=== PATIENT | male | born 1935 | race Caucasian/White ===

== ENCOUNTER 2021-08-31 18:36 | Inpatient (IN) ==
[2021-08-31 22:22] LABS: Basophils # 0.1 K/mcL (0.0-0.2); Basophils % 0.8 %; Eosinophils # 0.5 K/mcL (0.0-0.6); Eosinophils % 6.4 %; Hematocrit 37.5 % (37.5-50.1); Hemoglobin 11.8 g/dL (12.9-16.9); Immature Granulocytes % 0.4 % (0-4); Lymphocytes # 1.9 K/mcL (0.6-4.6); Lymphocytes % 22.7 %; Mean Corpuscular HGB Conc 31.5 g/dL (31.6-35.5); Mean Corpuscular Hemoglobin 28.6 pg (28.0-33.3); Mean Platelet Volume 10.3 fL (9.4-12.4); Monocytes # 0.8 K/mcL (0.0-1.3); Monocytes % 9.8 %; Platelet Count 281 K/mcL (140-400); Red Blood Count 4.12 M/mcL (4.19-5.50); Red Cell Distribution Width 12.7 % (11.5-14.5); Segmented Neutrophils % 59.9 %; White Blood Count 8.4 K/mcL (4.3-11.1)
[2021-08-31 22:37] LABS: BUN/Creatinine Ratio 31 (6-26); Blood Urea Nitrogen 33 mg/dL (8-23); Calcium 9.4 mg/dL (8.6-10.3); Carbon Dioxide 25 mEq/L (23-29); Chloride 107 mEq/L (98-107); Glucose 131 mg/dL (70-105); Osmolality,Calculated 299 (280-300); Sodium 140 mEq/L (136-145); eGFR For African Americans > 60 (> 60); eGFR For Non-African Americans > 60 (> 60)
[2021-08-31 22:48] LABS: Bilirubin,Urine Large (Negative); Blood,Urine Large (Negative); Clarity,Urine Turbid (Clear); Color,Urine Red (Yellow); Glucose,Urine (UA) Normal (Normal); Ketones,Urine 15 mg/dL (Negative); Leukocyte Esterase,Urine Large (Negative); Nitrite,Urine Positive (Negative); Protein,Urine >=300 mg/dL (Neg-Trace)
[2021-09-01] MEDS ORDERED: Isovue-370 500 ML BOTTLE IVP ONE (00:05)
[2021-09-01 00:50] LABS: INR 1.1; Prothrombin Time 12.4 Seconds (9.4-12.1)
[2021-09-01 00:54] LABS: Activated Partial Thrombo Time 30.4 Seconds (26.0-36.0)
[2021-09-01] MEDS ORDERED: Lidocaine Jelly 11 ml Syringe TP ONE (01:09)
[2021-09-01] MEDS ORDERED: cefTRIAXone 1,000 MG in 0.9 % Sodium Chloride Mini Bag 100 ML IVPB ONE (01:51)
[2021-09-01] MEDS ORDERED: Melatonin 3 MG TABLET PO PRN ×2 (02:11→18:07)
[2021-09-01] MEDS ORDERED: Naloxone 0.4 MG/ML INJ IVP PRN ×2 (02:11→18:07)
[2021-09-01] MEDS ORDERED: Ondansetron 4 MG/2 ML VIAL IVP PRN ×3 (02:11→18:07)
[2021-09-01] MEDS ORDERED: Acetaminophen 325 MG TABLET PO PRN ×2 (02:11→18:07)
[2021-09-01] MEDS ORDERED: Dextrose Gel 15 GM/37.5 ML TUBE PO PRN ×4 (02:14→18:07)
[2021-09-01] MEDS ORDERED: D5% in Water 1,000 ML IVC PRN ×2 (02:14→18:07)
[2021-09-01] MEDS ORDERED: *HR* Dextrose 50 % in Water (Syg) 50 ML SYRINGE IVP PRN ×2 (02:14→18:07)
[2021-09-01] MEDS: Insulin LISPRO 300 UNITS/3 ML VIAL SUBQ SCH ×3 (05:49→17:25)
[2021-09-01 06:03] LABS: Basophils # 0.1 K/mcL (0.0-0.2); Basophils % 0.8 %; Eosinophils # 0.6 K/mcL (0.0-0.6); Eosinophils % 7.8 %; Hematocrit 34.9 % (37.5-50.1); Hemoglobin 10.7 g/dL (12.9-16.9); Immature Granulocytes % 0.3 % (0-4); Lymphocytes # 1.5 K/mcL (0.6-4.6); Lymphocytes % 19.1 %; Mean Corpuscular HGB Conc 30.7 g/dL (31.6-35.5); Mean Corpuscular Hemoglobin 28.3 pg (28.0-33.3); Mean Corpuscular Volume 92.3 fL (83.0-100.0); Mean Platelet Volume 10.7 fL (9.4-12.4); Monocytes # 0.8 K/mcL (0.0-1.3); Monocytes % 9.4 %; Platelet Count 238 K/mcL (140-400); Red Blood Count 3.78 M/mcL (4.19-5.50); Red Cell Distribution Width 12.7 % (11.5-14.5); Segmented Neutrophils % 62.6 %
[2021-09-01 06:29] LABS: BUN/Creatinine Ratio 34 (6-26); Blood Urea Nitrogen 33 mg/dL (8-23); Calcium 8.9 mg/dL (8.6-10.3); Carbon Dioxide 22 mEq/L (23-29); Chloride 109 mEq/L (98-107); Glucose 129 mg/dL (70-105); Osmolality,Calculated 297 (280-300); Potassium 3.8 mEq/L (3.5-5.1); Sodium 139 mEq/L (136-145); eGFR For African Americans > 60 (> 60); eGFR For Non-African Americans > 60 (> 60)
[2021-09-01] MEDS ORDERED: DilTIAZem CD (24hr) 120 MG CAP.ER.24H PO SCH (09:00)
[2021-09-01] MEDS ORDERED: *HR* FentaNYL (PF) 100 MCG/2 ML VIAL IVP PRN (16:15)
[2021-09-01] MEDS ORDERED: Lidocaine -MPF 2% 5 ML VIAL ONE (16:22)
[2021-09-01] MEDS ORDERED: *HR* Propofol 200 MG/20 ML VIAL IVP ONE (16:22)
[2021-09-01] MEDS ORDERED: *HR* FentaNYL (PF) 100 MCG/2 ML VIAL ONE (16:22)
[2021-09-01] MEDS ORDERED: Ondansetron 4 MG/2 ML VIAL ONE ×2 (16:34→16:40)
[2021-09-01] MEDS: cefTRIAXone 1,000 MG in Water for inj. (sterile) 10 ML IVP SCH (20:38)
[2021-09-01] MEDS ORDERED: cefTRIAXone 1,000 MG in Water for inj. (sterile) 10 ML IVP SCH (21:00)
[2021-09-02] MEDS: Insulin LISPRO 300 UNITS/3 ML VIAL SUBQ SCH ×4 (00:58→20:19)
[2021-09-02] MEDS: DilTIAZem CD (24hr) 120 MG CAP.ER.24H PO SCH (09:18)
[2021-09-02] MEDS: cefTRIAXone 1,000 MG in Water for inj. (sterile) 10 ML IVP SCH (09:18)
[2021-09-02 09:58] LABS: Hematocrit 35.4 % (37.5-50.1)
[2021-09-02 10:11] LABS: Phosphorous 2.4 mg/dL (2.7-4.5)
[2021-09-02 10:13] LABS: BUN/Creatinine Ratio 31 (6-26); Blood Urea Nitrogen 30 mg/dL (8-23); Calcium 8.8 mg/dL (8.6-10.3); Carbon Dioxide 25 mEq/L (23-29); Chloride 107 mEq/L (98-107); Glucose 123 mg/dL (70-105); Osmolality,Calculated 296 (280-300); Potassium 3.9 mEq/L (3.5-5.1); Sodium 139 mEq/L (136-145); eGFR For African Americans > 60 (> 60); eGFR For Non-African Americans > 60 (> 60)
[2021-09-02] MEDS ORDERED: *HR* Belladonna Alkaloids/Opium 30 MG RECTAL SUPPOSITORY RC PRN (10:14)
[2021-09-02] MEDS: Gabapentin 300 MG CAPSULE PO SCH ×2 (14:36→20:15)
[2021-09-03 01:36] LABS: Basophils # 0.1 K/mcL (0.0-0.2); Basophils % 0.8 %; Eosinophils # 0.7 K/mcL (0.0-0.6); Eosinophils % 8.6 %; Hematocrit 33.3 % (37.5-50.1); Hemoglobin 10.4 g/dL (12.9-16.9); Immature Granulocytes % 0.2 % (0-4); Lymphocytes # 1.8 K/mcL (0.6-4.6); Lymphocytes % 21.6 %; Mean Corpuscular HGB Conc 31.2 g/dL (31.6-35.5); Mean Corpuscular Hemoglobin 28.6 pg (28.0-33.3); Mean Corpuscular Volume 91.5 fL (83.0-100.0); Mean Platelet Volume 10.6 fL (9.4-12.4); Monocytes # 0.9 K/mcL (0.0-1.3); Neutrophils # 4.8 K/mcL (1.6-8.9); Platelet Count 259 K/mcL (140-400); Red Blood Count 3.64 M/mcL (4.19-5.50); Red Cell Distribution Width 12.7 % (11.5-14.5); Segmented Neutrophils % 57.8 %; White Blood Count 8.4 K/mcL (4.3-11.1)
[2021-09-03 01:53] LABS: BUN/Creatinine Ratio 32 (6-26); Blood Urea Nitrogen 32 mg/dL (8-23); Calcium 8.5 mg/dL (8.6-10.3); Carbon Dioxide 23 mEq/L (23-29); Chloride 109 mEq/L (98-107); Glucose 135 mg/dL (70-105); Osmolality,Calculated 297 (280-300); Phosphorous 2.7 mg/dL (2.7-4.5); Potassium 3.7 mEq/L (3.5-5.1); Sodium 139 mEq/L (136-145); eGFR For African Americans > 60 (> 60); eGFR For Non-African Americans > 60 (> 60)
[2021-09-03 07:27] VITALS: BP 127/75; PULSE 81; TEMP 98.6; O2SAT 97
[2021-09-03] MEDS ORDERED: Isosorbide MONOnitrate (24 HR) 60 MG TAB.ER.24H PO SCH (09:00)
[2021-09-03] MEDS ORDERED: NON-FORMULARY MEDICATION 1 EACH EACH (Atorvastatin Calcium [Lipitor] 20 MG Tablet) PO SCH (09:00)
[2021-09-03] MEDS ORDERED: levoFLOXacin 750 MG TABLET PO SCH (09:00)
[2021-09-03] MEDS ORDERED: Celecoxib 200 MG CAPSULE PO SCH (09:00)
[2021-09-03] MEDS: DilTIAZem CD (24hr) 120 MG CAP.ER.24H PO SCH (09:22)
[2021-09-03] MEDS: Insulin LISPRO 300 UNITS/3 ML VIAL SUBQ SCH (09:22)
[2021-09-03] MEDS: Gabapentin 300 MG CAPSULE PO SCH (09:22)
== END 2021-09-03 13:00 | disposition home or self-care (01) | DRG 670 ==
LOC: EMEROOARM 18:36 → 3ANU 18:36 → SUATTDRO 09-01 02:04 → 3ANU 09-01 03:09
PROVIDERS: ADMIT Internal Medicine; ATTEND Internal Medicine

== ENCOUNTER 2021-10-08 14:06 | Observation (INO) ==
[2021-10-08] MEDS ORDERED: 0.9 % Sodium Chloride 500 ML IVC ONE (15:13)
[2021-10-08] MEDS ORDERED: Acetaminophen 325 MG TABLET PO ONE (15:14)
[2021-10-08 15:30] LABS: Basophils % 0.6 %; Eosinophils # 0.1 K/mcL (0.0-0.6); Hematocrit 37.2 % (37.5-50.1); Hemoglobin 11.7 g/dL (12.9-16.9); Immature Granulocytes % 0.2 % (0-4); Lymphocytes # 1.2 K/mcL (0.6-4.6); Lymphocytes % 24.7 %; Mean Corpuscular HGB Conc 31.5 g/dL (31.6-35.5); Mean Corpuscular Hemoglobin 27.5 pg (28.0-33.3); Mean Corpuscular Volume 87.3 fL (83.0-100.0); Mean Platelet Volume 11.1 fL (9.4-12.4); Monocytes # 0.7 K/mcL (0.0-1.3); Monocytes % 13.7 %; Platelet Count 216 K/mcL (140-400); Red Blood Count 4.26 M/mcL (4.19-5.50); Segmented Neutrophils % 58.8 %
[2021-10-08 15:37] LABS: Alanine Aminotransferase 13 Units/L (7-52); Albumin 3.8 g/dL (3.5-5.7); Albumin/Globulin Ratio 1.5 (1.1-2.2); Alkaline Phosphatase 97 Units/L (34-104); Aspartate Amino Transferase 23 Units/L (13-39); BUN/Creatinine Ratio 23 (6-26); Bilirubin,Total 0.4 mg/dL (0.3-1.0); Blood Urea Nitrogen 30 mg/dL (8-23); Carbon Dioxide 22 mEq/L (23-29); Chloride 102 mEq/L (98-107); Creatine Kinase 48 Units/L (30-223); Globulin 2.6 g/dL (2.4-3.5); Glucose 132 mg/dL (70-105); Osmolality,Calculated 288 (280-300); Potassium 3.6 mEq/L (3.5-5.1); Sodium 135 mEq/L (136-145); Total Protein 6.4 g/dL (6.4-8.9); Troponin I < 0.03 ng/mL (< 0.04); eGFR For African Americans > 60 (> 60); eGFR For Non-African Americans 52 (> 60)
[2021-10-08 15:41] LABS: INR 1.1; Prothrombin Time 11.8 Seconds (9.4-12.1)
[2021-10-08 15:43] LABS: Activated Partial Thrombo Time 30.7 Seconds (26.0-36.0)
[2021-10-08 17:21] LABS: Bilirubin,Urine Negative (Negative); Blood,Urine Moderate (Negative); Clarity,Urine Clear (Clear); Color,Urine Yellow (Yellow); Glucose,Urine (UA) Normal (Normal); Hyaline Casts,Urine Moderate per lpf (None Seen); Ketones,Urine Trace mg/dL (Negative); Leukocyte Esterase,Urine Moderate (Negative); Mucus,Urine Few per lpf (None-Few); Nitrite,Urine Negative (Negative); Protein,Urine 50 mg/dL (Neg-Trace); Specific Gravity,Urine 1.027 (1.010-1.025); Urobilinogen,Urine Normal (Normal); WBC,Urine 50-100 per hpf (0-3)
[2021-10-08 17:31] LABS: Amphetamine Screen,Urine Negative ng/mL (Cutoff=1000); Barbiturate Screen,Urine Negative ng/mL (Cutoff=200); Benzodiazepines Screen,Urine Negative ng/mL (Cutoff=200); Cannabinoid Screen,Urine Negative ng/mL (Cutoff = 50); Cocaine Screen,Urine Negative ng/mL (Cutoff= 300); Opiate Screen,Urine Negative ng/mL (Cutoff=300); Phencyclidine Screen,Urine Negative ng/mL (Cutoff=25)
[2021-10-08] MEDS ORDERED: cefTRIAXone 1,000 MG in 0.9 % Sodium Chloride Mini Bag 100 ML IVPB ONE (18:38)
[2021-10-08] MEDS ORDERED: Melatonin 3 MG TABLET PO PRN (19:47)
[2021-10-08] MEDS ORDERED: Naloxone 0.4 MG/ML INJ IVP PRN (19:47)
[2021-10-08] MEDS ORDERED: D5% in Water 1,000 ML IVC PRN (19:51)
[2021-10-08] MEDS ORDERED: Dextrose Gel 15 GM/37.5 ML TUBE PO PRN ×2 (19:51)
[2021-10-08] MEDS ORDERED: *HR* Dextrose 50 % in Water (Syg) 50 ML SYRINGE IVP PRN (19:51)
[2021-10-08] MEDS ORDERED: Ringers Solution, Lactated 1,000 ML IVC SCH (20:00)
[2021-10-08] MEDS: Insulin LISPRO 300 UNITS/3 ML VIAL SUBQ SCH (21:11)
[2021-10-09] MEDS: *HR* Enoxaparin 40 MG/0.4 ML SYRINGE SQ SCH (05:38)
[2021-10-09 07:58] LABS: Hematocrit 32.6 % (37.5-50.1); Hemoglobin 10.2 g/dL (12.9-16.9); Mean Corpuscular HGB Conc 31.3 g/dL (31.6-35.5); Mean Corpuscular Hemoglobin 27.4 pg (28.0-33.3); Mean Corpuscular Volume 87.6 fL (83.0-100.0); Mean Platelet Volume 10.5 fL (9.4-12.4); Platelet Count 174 K/mcL (140-400); Red Blood Count 3.72 M/mcL (4.19-5.50)
[2021-10-09 08:11] LABS: Alanine Aminotransferase 11 Units/L (7-52); Albumin 3.3 g/dL (3.5-5.7); Albumin/Globulin Ratio 1.4 (1.1-2.2); Alkaline Phosphatase 85 Units/L (34-104); Aspartate Amino Transferase 21 Units/L (13-39); BUN/Creatinine Ratio 29 (6-26); Bilirubin,Total 0.4 mg/dL (0.3-1.0); Blood Urea Nitrogen 26 mg/dL (8-23); Carbon Dioxide 24 mEq/L (23-29); Chloride 104 mEq/L (98-107); Globulin 2.3 g/dL (2.4-3.5); Glucose 128 mg/dL (70-105); Magnesium 1.5 mg/dL (1.6-2.6); Osmolality,Calculated 288 (280-300); Phosphorous 2.9 mg/dL (2.7-4.5); Potassium 3.4 mEq/L (3.5-5.1); Sodium 136 mEq/L (136-145); Total Protein 5.6 g/dL (6.4-8.9); eGFR For African Americans > 60 (> 60); eGFR For Non-African Americans > 60 (> 60)
[2021-10-09] MEDS: Insulin LISPRO 300 UNITS/3 ML VIAL SUBQ SCH ×4 (09:40→19:57)
[2021-10-09] MEDS: Aspirin Enteric Coated 81 MG Tablet PO SCH (09:58)
[2021-10-09 10:07] LABS: C-Reactive Protein 81 mg/L (Less than 10)
[2021-10-10] MEDS: *HR* Enoxaparin 40 MG/0.4 ML SYRINGE SQ SCH (04:36)
[2021-10-10] MEDS: Insulin LISPRO 300 UNITS/3 ML VIAL SUBQ SCH ×4 (07:37→21:00)
[2021-10-10 08:34] LABS: Basophils % 0.2 %; Eosinophils # 0.1 K/mcL (0.0-0.6); Eosinophils % 2.5 %; Hematocrit 32.6 % (37.5-50.1); Hemoglobin 10.4 g/dL (12.9-16.9); Immature Granulocytes % 0.2 % (0-4); Lymphocytes # 1.2 K/mcL (0.6-4.6); Lymphocytes % 24.5 %; Mean Corpuscular HGB Conc 31.9 g/dL (31.6-35.5); Mean Corpuscular Volume 87.9 fL (83.0-100.0); Mean Platelet Volume 10.3 fL (9.4-12.4); Monocytes # 0.5 K/mcL (0.0-1.3); Monocytes % 10.6 %; Neutrophils # 2.9 K/mcL (1.6-8.9); Platelet Count 199 K/mcL (140-400); Red Blood Count 3.71 M/mcL (4.19-5.50); White Blood Count 4.7 K/mcL (4.3-11.1)
[2021-10-10] MEDS: Vitamin B Complex/Vit C/Vit E 1 EACH TABLET PO SCH (08:37)
[2021-10-10] MEDS: Aspirin Enteric Coated 81 MG Tablet PO SCH (08:37)
[2021-10-10] MEDS: DilTIAZem CD (24hr) 120 MG CAP.ER.24H PO SCH (08:37)
[2021-10-10 08:54] LABS: BUN/Creatinine Ratio 30 (6-26); Blood Urea Nitrogen 27 mg/dL (8-23); Calcium 8.2 mg/dL (8.6-10.3); Carbon Dioxide 24 mEq/L (23-29); Chloride 104 mEq/L (98-107); Glucose 105 mg/dL (70-105); Osmolality,Calculated 287 (280-300); Potassium 3.4 mEq/L (3.5-5.1); Sodium 136 mEq/L (136-145); eGFR For African Americans > 60 (> 60); eGFR For Non-African Americans > 60 (> 60)
[2021-10-11] MEDS: *HR* Enoxaparin 40 MG/0.4 ML SYRINGE SQ SCH (05:09)
[2021-10-11 07:29] VITALS: BP 134/69; PULSE 81; TEMP 98.3; O2SAT 90
[2021-10-11] MEDS: Insulin LISPRO 300 UNITS/3 ML VIAL SUBQ SCH (08:49)
[2021-10-11] MEDS ORDERED: dexAMETHasone 4 MG TABLET PO SCH (09:00)
[2021-10-11] MEDS: Aspirin Enteric Coated 81 MG Tablet PO SCH (09:20)
[2021-10-11] MEDS: DilTIAZem CD (24hr) 120 MG CAP.ER.24H PO SCH (09:20)
[2021-10-11] MEDS: Vitamin B Complex/Vit C/Vit E 1 EACH TABLET PO SCH (09:20)
== END 2021-10-11 11:57 | disposition home or self-care (01) ==
LOC: 3BNU 14:06 → EMEROOARM 14:06 → SUATTDRO 19:55 → 3BNU 20:32
PROVIDERS: ADMIT Internal Medicine; ATTEND Internal Medicine

== ENCOUNTER 2022-03-14 12:35 | Observation (INO) ==
[2022-03-14] MEDS ORDERED: Ondansetron 4 MG/2 ML VIAL IVP ONE (15:32)
[2022-03-14] MEDS ORDERED: Morphine Sulfate 2 MG/ML SYRINGE IVP STA (15:32)
[2022-03-14] MEDS ORDERED: 0.9 % Sodium Chloride 1,000 ML IVC ONE (15:32)
[2022-03-14 15:50] LABS: Basophils # 0.1 K/mcL (0.0-0.2); Basophils % 0.5 %; Eosinophils # 0.2 K/mcL (0.0-0.6); Eosinophils % 1.9 %; Hematocrit 35.7 % (37.5-50.1); Hemoglobin 11.4 g/dL (12.9-16.9); Immature Granulocytes % 1.1 % (0-4); Lymphocytes # 1.1 K/mcL (0.6-4.6); Lymphocytes % 9.8 %; Mean Corpuscular HGB Conc 31.9 g/dL (31.6-35.5); Mean Corpuscular Hemoglobin 27.5 pg (28.0-33.3); Mean Corpuscular Volume 86.2 fL (83.0-100.0); Monocytes # 0.8 K/mcL (0.0-1.3); Monocytes % 7.1 %; Platelet Count 344 K/mcL (140-400); Red Blood Count 4.14 M/mcL (4.19-5.50); Red Cell Distribution Width 14.4 % (11.5-14.5); Segmented Neutrophils % 79.6 %; White Blood Count 11.3 K/mcL (4.3-11.1)
[2022-03-14 15:57] LABS: INR 1.2; Prothrombin Time 13.3 Seconds (9.4-12.1)
[2022-03-14 16:06] LABS: Albumin 3.8 g/dL (3.5-5.7); Albumin/Globulin Ratio 1.2 (1.1-2.2); Bilirubin,Direct 0.1 mg/dL (0.0-0.2); Bilirubin,Indirect 0.6 mg/dL (0.0-1.0); Bilirubin,Total 0.7 mg/dL (0.3-1.0); Calcium 9.4 mg/dL (8.6-10.3); Globulin 3.1 g/dL (2.4-3.5); Potassium 4.2 mEq/L (3.5-5.1); Total Protein 6.9 g/dL (6.4-8.9)
[2022-03-14] MEDS ORDERED: Naloxone 0.4 MG/ML INJ IVP PRN ×2 (16:42→16:55)
[2022-03-14] MEDS ORDERED: Ondansetron 4 MG/2 ML VIAL IVP PRN (16:55)
[2022-03-14] MEDS ORDERED: Acetaminophen 325 MG TABLET PO PRN (16:55)
[2022-03-14] MEDS ORDERED: Mag Hydrox/Al Hydrox/Simeth 30 ML UDC PO PRN (16:55)
[2022-03-14] MEDS ORDERED: D5% in Water 1,000 ML IVC PRN (16:59)
[2022-03-14] MEDS ORDERED: *HR* Dextrose 50 % in Water (Syg) 50 ML SYRINGE IVP PRN (16:59)
[2022-03-14] MEDS ORDERED: Dextrose Gel 15 GM/37.5 ML TUBE PO PRN ×2 (16:59)
[2022-03-14] MEDS: *HR* OxyCODONE Immed Rel 5 MG TABLET PO PRN (19:24)
[2022-03-14] MEDS: Insulin LISPRO 300 UNITS/3 ML VIAL SUBQ SCH (19:27)
[2022-03-14] MEDS: 0.9 % Sodium Chloride 1,000 ML IVC SCH (20:07)
[2022-03-15] MEDS: Insulin LISPRO 300 UNITS/3 ML VIAL SUBQ SCH ×5 (01:16→23:38)
[2022-03-15] MEDS: *HR* OxyCODONE Immed Rel 5 MG TABLET PO PRN (04:08)
[2022-03-15 04:38] LABS: Bacteria,Urine Few per hpf (None-Few); Bilirubin,Urine Negative (Negative); Blood,Urine Moderate (Negative); Clarity,Urine Turbid (Clear); Color,Urine Yellow (Yellow); Glucose,Urine (UA) Normal (Normal); Ketones,Urine Negative (Negative); Leukocyte Esterase,Urine Moderate (Negative); Mucus,Urine Many per lpf (None-Few); Nitrite,Urine Negative (Negative); Protein,Urine 100 mg/dL (Neg-Trace); RBC,Urine 50-100 per hpf (0-3); Specific Gravity,Urine 1.026 (1.010-1.025); Squamous Epithelial Cell,Urine Few per hpf (None-Few); Urobilinogen,Urine Normal (Normal); WBC,Urine 50-100 per hpf (0-3)
[2022-03-15 05:51] LABS: Basophils # 0.1 K/mcL (0.0-0.2); Basophils % 0.6 %; Eosinophils # 0.3 K/mcL (0.0-0.6); Eosinophils % 2.6 %; Hematocrit 31.4 % (37.5-50.1); Immature Granulocytes % 0.9 % (0-4); Mean Corpuscular HGB Conc 31.2 g/dL (31.6-35.5); Mean Corpuscular Hemoglobin 27.5 pg (28.0-33.3); Mean Platelet Volume 10.1 fL (9.4-12.4); Monocytes % 8.9 %; Neutrophils # 8.5 K/mcL (1.6-8.9); Platelet Count 290 K/mcL (140-400); Red Blood Count 3.57 M/mcL (4.19-5.50); Red Cell Distribution Width 14.4 % (11.5-14.5); White Blood Count 10.9 K/mcL (4.3-11.1)
[2022-03-15 05:52] LABS: Hemoglobin 9.8 g/dL (12.9-16.9)
[2022-03-15 05:56] LABS: INR 1.2; Prothrombin Time 13.3 Seconds (9.4-12.1)
[2022-03-15 05:58] LABS: Activated Partial Thrombo Time 26.2 Seconds (26.0-36.0)
[2022-03-15 06:10] LABS: Calcium 8.5 mg/dL (8.6-10.3); Magnesium 1.7 mg/dL (1.6-2.6)
[2022-03-15] MEDS ORDERED: 0.9 % Sodium Chloride 500 ML ONE ×2 (08:49→08:54)
[2022-03-15] MEDS ORDERED: Lidocaine/EPI 1:100k 1% 50 ML VIAL ONE (08:49)
[2022-03-15] MEDS ORDERED: *HR* FentaNYL (PF) 100 MCG/2 ML VIAL IVP ONE (08:52)
[2022-03-15] MEDS ORDERED: *HR* Midazolam HCl 2 MG/2 ML VIAL IVP ONE (08:52)
[2022-03-15] MEDS ORDERED: *HR* FentaNYL (PF) 100 MCG/2 ML VIAL ONE (08:54)
[2022-03-15] MEDS ORDERED: *HR* Midazolam HCl 2 MG/2 ML VIAL ONE (08:54)
[2022-03-15] MEDS ORDERED: ALFUZOSIN HCL 10 MG PO SCH (09:00)
[2022-03-15] MEDS ORDERED: Iopamidol - 300 50 ML VIAL IVP ONE (09:11)
[2022-03-15] MEDS: cefTRIAXone 1,000 MG in 0.9 % Sodium Chloride 10 ML IVP SCH (09:57)
[2022-03-15] MEDS: Aspirin Enteric Coated 81 MG Tablet PO SCH (10:24)
[2022-03-15] MEDS: DilTIAZem CD (24hr) 240 MG CAP.ER.24H PO SCH (10:24)
[2022-03-15] MEDS: 0.9 % Sodium Chloride 1,000 ML IVC SCH (10:47)
[2022-03-15 13:35] LABS: Bilirubin,Urine Negative (Negative); Blood,Urine Large (Negative); Clarity,Urine Turbid (Clear); Color,Urine Colorless (Yellow); Glucose,Urine (UA) Normal (Normal); Ketones,Urine Trace mg/dL (Negative); Leukocyte Esterase,Urine Moderate (Negative); Nitrite,Urine Negative (Negative); PH,Urine 6.5 pH Units (5.0-8.0); Protein,Urine >=300 mg/dL (Neg-Trace); Specific Gravity,Urine 1.014 (1.010-1.025); Urobilinogen,Urine Normal (Normal)
[2022-03-15 13:37] LABS: RBC,Urine TNTC per hpf (0-3)
[2022-03-16 06:20] LABS: BUN/Creatinine Ratio 31 (6-26); Blood Urea Nitrogen 36 mg/dL (8-23); Calcium 8.5 mg/dL (8.6-10.3); Carbon Dioxide 23 mEq/L (23-29); Chloride 109 mEq/L (98-107); Glucose 143 mg/dL (70-105); Osmolality,Calculated 301 (280-300); Potassium 3.6 mEq/L (3.5-5.1); Sodium 140 mEq/L (136-145); eGFR For African Americans > 60 (> 60); eGFR For Non-African Americans 59 (> 60)
[2022-03-16 06:24] LABS: Basophils # 0.1 K/mcL (0.0-0.2); Basophils % 0.5 %; Eosinophils # 0.2 K/mcL (0.0-0.6); Eosinophils % 2.1 %; Hematocrit 29.9 % (37.5-50.1); Hemoglobin 9.3 g/dL (12.9-16.9); Immature Granulocytes % 0.8 % (0-4); Lymphocytes # 1.1 K/mcL (0.6-4.6); Lymphocytes % 11.7 %; Mean Corpuscular HGB Conc 31.1 g/dL (31.6-35.5); Mean Corpuscular Hemoglobin 27.4 pg (28.0-33.3); Mean Corpuscular Volume 87.9 fL (83.0-100.0); Mean Platelet Volume 10.4 fL (9.4-12.4); Monocytes # 0.9 K/mcL (0.0-1.3); Monocytes % 9.2 %; Neutrophils # 7.3 K/mcL (1.6-8.9); Platelet Count 301 K/mcL (140-400); Red Cell Distribution Width 14.3 % (11.5-14.5); Segmented Neutrophils % 75.7 %; White Blood Count 9.6 K/mcL (4.3-11.1)
[2022-03-16] MEDS: Insulin LISPRO 300 UNITS/3 ML VIAL SUBQ SCH ×2 (06:37→12:20)
[2022-03-16] MEDS: DilTIAZem CD (24hr) 240 MG CAP.ER.24H PO SCH (08:56)
[2022-03-16] MEDS: Aspirin Enteric Coated 81 MG Tablet PO SCH (08:56)
[2022-03-16] MEDS: cefTRIAXone 1,000 MG in 0.9 % Sodium Chloride 10 ML IVP SCH (08:59)
[2022-03-16 11:35] VITALS: BP 151/63; PULSE 86; TEMP 98; O2SAT 95
== END 2022-03-16 13:44 | disposition home or self-care (01) ==
LOC: 3BNU 12:35 → EMEROOARM 12:35 → SUATTDRO 18:26 → 3BNU 18:53
PROVIDERS: ADMIT Internal Medicine; ATTEND Internal Medicine